=== PATIENT | female | born 1990 | race Caucasian/White ===

== ENCOUNTER 2025-02-16 19:30 | Observation (INO) | payer OTHER, SELFPAY ==
[2025-02-16 19:40] VITALS: BMI 30.7
[2025-02-16] MEDS: LR 1000 IV (19:50)
[2025-02-16 20:14] VITALS: BP 126/79
[2025-02-16 20:20] LABS: Urine Albumin Negative (Neg - Trace); Urine Bilirubin Negative (Negative); Urine Character Clear (Clear); Urine Color Yellow; Urine Glucose Negative (Negative); Urine Ketone Negative (Negative); Urine Leukocyte Negative (Negative); Urine Nitrite Negative (Negative); Urine Occult Blood 3+ (Negative); Urine Urobilinogen Negative (Neg - 1+)
[2025-02-16] MEDS: ANCEF 10 IV (21:00)
== END 2025-02-16 21:00 | disposition home or self-care (01) ==
LOC: LDRP 19:30
PROVIDERS: ADMITTING PHYSICIAN Obstetrics & Gynecology
DX: O47.03 False labor before 37 completed weeks of gestation, third trimester (principal); Z3A.31 31 weeks gestation of pregnancy
CPT/HCPCS: 81003; 81015; 87086; G0378